=== PATIENT | male | born 1940 | race Caucasian/White ===

== ENCOUNTER 2019-10-26 12:13 | Emergency (ER) | payer MEDICARE, BC ==
[~2019-10-26] VITALS: Ht 180.3 cm; Wt 100.0 kg
[2019-10-26 12:34] VITALS: Ht 180.3 cm; Wt 100.0 kg
[2019-10-26 13:24] LABS: BASOPHILS 0.3 % (0-2); HEMATOCRIT 40.9 % (42.0-54.0); HEMOGLOBIN 14.4 g/dL (13.5-17.5); IMMATURE GRANULOCYTES 0.6 % (0-5); LYMPHOCYTES 22.3 % (15-50); MCH 30.8 pg (26.0-34.0); MCHC 35.2 g/dL (31.0-37.0); MCV 87.4 fL (80.0-100.0); MEAN PLATELET VOLUME 9.1 fL (7.4-10.4); MONOCYTES 7.1 % (2-11); NEUTROPHILS 65.7 % (40-80); PLATELET COUNT 111 10x3/uL (130-400); RBC 4.68 10x6/uL (4.20-6.10); RDW 12.5 % (11.5-14.5); WBC 3.2 10x3/uL (4.8-10.8)
[2019-10-26 13:31] LABS: CALC OSMOLALITY 278 mosm/kg (275-300); CARBON DIOXIDE 24.2 mmol/L (21.0-32.0); CHLORIDE - SERUM 101 mmol/L (98-107); GLUCOSE 212 mg/dL (74-106); POTASSIUM - SERUM 3.9 mmol/L (3.5-5.1); SODIUM 135 mmol/L (136-145); UREA NITROGEN 20 mg/dL (7-18); eGFR NON AFRICAN AMERICAN 77 mL/min (90-120)
[2019-10-26 13:49] LABS: ALKALINE PHOSPHATASE 61 U/L (30-120); ALT (SGPT) 38 U/L (10-68); BILIRUBIN - TOTAL 1.38 mg/dL (0.2-1.3); PROTEIN - SERUM 7.3 g/dL (6.4-8.2)
[2019-10-26 13:52] LABS: APTT 27.2 SECONDS (22.8-39.4)
[2019-10-26 13:56] LABS: INR 1.05 (0.85-1.17); PROTIME 13.7 SECONDS (11.6-15.0)
[2019-10-26 14:52] LABS: BILIRUBIN NEGATIVE (NEGATIVE); GLUCOSE 1000 mg/dL (NEGATIVE); KETONE NEGATIVE (NEGATIVE); NITRITE NEGATIVE (NEGATIVE); UROBILINOGEN NORMAL (NORMAL)
[2019-10-26] MEDS ORDERED: CYCLOBENZAPRINE10 MG PO (15:38)
[2019-10-26] MEDS ORDERED: ACETAMINOPHEN500 M1 PO (15:38)
[2019-10-26] MEDS ORDERED: NAPROSYN500 MG PO (15:38)
[2019-10-26 16:26] VITALS: BP 131/93
== END 2019-10-26 16:15 | disposition home or self-care (01) ==
LOC: D.ER 12:13
PROVIDERS: Family Medicine
DX: M79.642 Pain in left hand (principal); M79.641 Pain in right hand; M79.18 Myalgia, other site; T14.8XXA Other injury of unspecified body region, initial encounter; V89.2XXA Person injured in unspecified motor-vehicle accident, traffic, initial encounter; Y93.9 Activity, unspecified; Y92.9 Unspecified place or not applicable; E11.9 Type 2 diabetes mellitus without complications; I10 Essential (primary) hypertension